=== PATIENT | male | born 1990 | race Hispanic/Latino ===

== ENCOUNTER 2018-03-27 20:20 | Emergency (ER) | payer OTHER ==
[2018-03-27 20:35] VITALS: TEMP 97.5; O2SAT 100
[2018-03-27 22:51] LABS: BASO # 0.1 K/uL (0.0-0.2); BASO % 0.9 % (0.0-2.0); EOS # 0.1 K/uL (0.0-0.7); EOS % 1.1 % (0.0-4.0); HEMOGLOBIN 15.9 g/dL (12.0-18.0); LYMPH # 1.9 K/uL (1.0-4.3); MEAN CORPUSCULAR HGB CONC 34.5 g/dL (33.0-37.0); MEAN PLATELET VOLUME 8.5 fl (7.2-11.7); MONO # 0.7 K/uL (0.0-0.8); MONO % 10.9 % (0.0-10.0); NEUT % 59.1 % (50.0-75.0); NRBC % 0.1 % (0.0-0.0); RBC 5.29 Mil/uL (4.40-5.90); RED CELL DISTRIBUTION WIDTH 13.1 % (11.5-14.5); WHITE BLOOD COUNT 6.8 K/uL (4.8-10.8)
[2018-03-27 23:07] LABS: ALB/GLOB RATIO 1.5 (1.0-2.1); ALBUMIN 4.8 g/dL (3.5-5.0); ALT/SGPT 60 U/L (21-72); AST/SGOT 44 U/L (17-59); BLOOD UREA NITROGEN 20 mg/dl (9-20); CALCIUM 9.3 mg/dL (8.4-10.2); GFR NON-AFRICAN AMERICAN > 60
--- NOTE | 2018-03-27 23:17 | ED PDOC ---
HPI: Psych/Substance Abuse Time Seen by Provider: 03/27/18 20:44 Chief Complaint (Nursing): Chest Pain Chief Complaint (Provider): Palpitations and Dizziness History Per: Patient History/Exam Limitations: no limitations Onset/Duration Of Symptoms: Hrs (x4) Current Symptoms Are (Timing): Still Present Additional Complaint(s): 27 y/o male with a PMHx of panic attacks presents to the ED for evaluation of a panic attack, onset 2 hours prior to arrival. Patient states panic attack became more severe, thus prompting today's visit. Patient reports of feeling like imminent , palpitations and dizziness. Patient denies any triggers. denies stressors/denies SI and HI. PMD: Chambers Past Medical History Reviewed: Historical Data, Nursing Documentation, Vital Signs Vital Signs: Last Vital Signs Temp 97.5 F L 03/27/18 20:29 Pulse 89 03/27/18 20:29 Resp 16 03/27/18 20:29 BP 139/79 03/27/18 20:29 Pulse Ox 100 03/27/18 20:29 - Medical History Other PMH: Panic Attacks - Surgical History Surgical History: No Surg Hx - Family History Family History: States: Other Other Family History: Panic Attacks - Social History Current smoker - smoking cessation education provided: Yes (Occasional) Alcohol: Occasional - Allergies Allergies/Adverse Reactions: Allergies Allergy/AdvReac Type Severity Reaction Status Date / Time No Known Allergies Allergy Verified 03/27/18 20:29 Review of Systems ROS Statement: Except As Marked, All Systems Reviewed And Found Negative Cardiovascular: Positive for: Palpitations Neurological: Positive for: Dizziness Psych: Positive for: Other (Panic Attack) Physical Exam - Reviewed Nursing Documentation Reviewed: Yes Vital Signs Reviewed: Yes - Physical Exam Appears: Positive for: No Acute Distress Head Exam: Positive for: ATRAUMATIC, NORMOCEPHALIC Skin: Positive for: Normal Color, Warm, Dry Eye Exam: Positive for: Normal appearance, EOMI, PERRL ENT: Positive for: Normal ENT Inspection Neck: Positive for: Normal, Painless ROM, Supple Cardiovascular/Chest: Positive for: Regular Rate, Rhythm. Negative for: Murmur Respiratory: Positive for: Normal Breath Sounds. Negative for: Respiratory Distress Gastrointestinal/Abdominal: Positive for: Normal Exam, Soft. Negative for: Tenderness Extremity: Positive for: Normal ROM. Negative for: Deformity Neurologic/Psych: Positive for: Alert, Oriented. Negative for: Motor/Sensory Deficits - Laboratory Results Result Diagrams: 03/27/18 22:44 03/27/18 22:44 - ECG O2 Sat by Pulse Oximetry: 100 (RA) Pulse Ox Interpretation: Normal Medical Decision Making Medical Decision Making: Time: 2157 Plan: PANIC ATTACK. NO CHEST PAIN AT THIS TIME. -- CBC with Differentials -- Troponin I -- CMP Time: 2229 Plan: -- CXR 2347 Labs reviewed, troponin negative. Chest x-ray reviewed and shows no active diseases. On reassessment, patient reports improvement in pain and states he feels much better; on repeat exam, heart and lung sounds are normal and chest remains non-tender. Patient is stable for discharge home, and is instructed to follow up with PMD in 2-3 days. Scribe Attestation: Documented by Anushka Dumont, acting as a scribe for Joanne Ch MD. Provider Scribe Attestation: All medical record entries made by the Scribe were at my direction and personall y dictated by me. I have reviewed the chart and agree that the record accurately reflects my personal performance of the history, physical exam, medical decision making, and the department course for this patient. I have also personally directed, reviewed, and agree with the discharge instructions and disposition. Disposition - Clinical Impression Clinical Impression: Atypical chest pain, Anxiety - Patient ED Disposition Is Patient to be Admitted: No Counseled Patient/Family Regarding: Studies Performed, Diagnosis, Need For Followup - Disposition Disposition: Routine/Home Disposition Time: 23:47 Condition: IMPROVED Additional Instructions: follow up with your primary doctor in 1-2 days for referral for therapist/psychiatrist return to the ED with any worsening or concerning symptoms Instructions: Chest Pain That Is Not Caused by the Heart (DC), Anxiety, Adult (DC) Forms: [email or web address] (U[place])
[2018-03-28 00:14] VITALS: BP 129/86; PULSE 81; RESP 15
--- NOTE | 2018-03-28 08:52 | RAD ---
Date of service: 03/27/2018 HISTORY: chest pain COMPARISON: No prior. FINDINGS: LUNGS: No active pulmonary disease. PLEURA: No significant pleural effusion identified, no pneumothorax apparent. CARDIOVASCULAR: There is absence of aortic atherosclerotic calcification on x-ray. Normal cardiac size. No pulmonary vascular congestion. OSSEOUS STRUCTURES: No significant abnormalities. VISUALIZED UPPER ABDOMEN: Normal. OTHER FINDINGS: None. IMPRESSION: No active disease.
== END 2018-03-28 00:14 | disposition home or self-care (01) ==
LOC: H.ER 20:20
DX: R07.89 Other chest pain (principal); F41.9 Anxiety disorder, unspecified